=== PATIENT | male | born 1990 | race Caucasian/White ===

== ENCOUNTER → 2016-12-13 | Day surgery (SDC) | payer OTHER ==
[~2016-12-13] MED LIST: BUPIVACAINE 0.5% 30 ML VIAL ONE; CEFAZOLIN 1 GM VIAL ONE; DIPHENHYDRAMINE 50 MG/ML VIAL IV PRN; FENTANYL 100 MCG/2 ML VIAL IV PRN; FENTANYL 250 MCG/5 ML VIAL IV ONE; HYDROmorphone 1 MG INJECTION IV PRN; LABETALOL 20 MG/4 ML SYRINGE IV PRN; LIDOCAINE 4% 5 ML AMPULE NEB ONE; MEPERIDINE 25 MG/ML TUBEX IV PRN; METOCLOPRAMIDE 10 MG/2 ML VIAL IV ONE; MORPHINE 4 MG/ML INJECTION IV ONE; ONDANSETRON HCL 4 MG ODT TAB PO PRN; ONDANSETRON HCL 4 MG/2 ML VIAL IV ONE; ONDANSETRON HCL 4 MG/2 ML VIAL IV PRN; PROMETHAZINE 25 MG/ML VIAL IV PRN; PROPOFOL 200 MG/20 ML VIAL IV ONE; SODIUM CHLORIDE 0.9% 3 ML FLUSH FLUSH PRN; SODIUM CHLORIDE 0.9% 3 ML FLUSH FLUSH SCH; hydrALAZINE 20 MG/ML VIAL IV PRN
[2016-12-13 11:59] VITALS: BMI 52.9
--- NOTE | 2016-12-13 12:41 | EDPRACDOC ---
- General Information Chief Complaint: Male Urogenital Problems Stated Complaint: SWOLLEN LT TESTICLE WITH PAIN Time Seen by Provider: 12/13/16 12:09 Information Source: Patient Mode Of Arrival: Car Home Medications: Home Medications No Home Medications 12/13/16 Allergies/Adverse Reactions: Allergies Allergy/AdvReac Type Severity Reaction Status Date / Time No Known Allergies Allergy Verified 12/13/16 11:59 - History of Present Illness Onset: wednesday HPI: Patient reports left testicular pain started on Wednesday while at work - no known injury, no lifting/twisting. Denies chance of STD. Patient reports pain has continued to worsen. Swelling/redness increased. Denies fever, reports chills and nausea without vomiting. Pain with urination as he states his penis is being "pushed in" d/t the swelling. Denies hx of similar. Symptom Onset: Reports: Sudden, Spontaneous Urinary Output: Normal Pain Severity: Severe Pain Quality: Reports: Aching Pain Improves with: Reports: Nothing Associated Signs & Symptoms: Reports: Dysuria, Nausea ED Past Medical History - History Reviewed Yes Nurses notes reviewed and agree except as marked - Patient Medical History Psychological History: Denies: Depression Surgical History: Reports: Tonsillectomy/Adnoidectomy - Social Medical History Smoking Status: Never smoker ETOH: None Substance Abuse: None Lives In: Home EDM Review of Systems - Review of Systems ROS Negative Except as Marked: Yes All systems reviewed and were negative except as marked Constitutional: Chills Eyes: No Symptoms Reported Ears: No Symptoms Reported Throat: No Symptoms Reported Nose: No Symptoms Reported Mouth: No Symptoms Reported Respiratory: No Symptoms Reported Cardiovascular: No Symptoms Reported Gastrointestinal: Nausea Genitourinary: Testicular Pain - Physical Exam Constitutional: Alert (Awake), No apparent distress Oriented to: Time, Person, Place Last recorded Vital Signs: Last Vital Signs Temp 97.9 F 12/13/16 11:57 Pulse 107 12/13/16 11:57 Resp 22 12/13/16 11:57 BP 178/111 H 12/13/16 11:57 Pulse Ox 97 12/13/16 11:57 Oxygen Pulse Oxygen Saturation 97 O2 Device Oxygen Flow Rate Fraction of Inspired Oxygen ( FIO2) - HEENT Head: Normal ( normocephalic) Eye Exam: Normal (PERRL, EOMI, Sclera white) Nose: No Symptoms Reported (septum midline) Neck: Normal (FROM, trachea at midline) - Respiratory/Cardiovascular Respiratory: Normal - CTA (BBS clear to auscultation without adventitious sounds ) Cardiovascular: Normal (RRR without murmur, gallop or rub) - GI Auscultation: Normal (NABS) Tenderness: Non tender - Musculoskeletal Back: Normal (Non-Tender) Extremities: Normal (Normal tone, Pulses 2+ No cyanosis or edema, FROM) - Integumentary Skin: Normal, Warm, Dry Lymphatics: Normal (no adenopathy) - Neurologic Memory Impaired: Normal Motor Function: Normal (Normal tone, Pulses 2+ No cyanosis or edema, FROM) Mood Description: Normal ED Penile Problem Exam - Genitals Penile Assessment: Other (Inverted) Testicle: Left: Tender, Swelling (Extremely tender, significant induration) - Re-evaluation Re-evaluation 1 Re-evaluation Time: 13:[address] George - Dr. Ly from radiology called - US evidence sufficient for torsion. Re-evaluation 2 Re-evaluation Time: 13:39 Dr. George returned call - will be here in 1hour to do case. - Departure Disposition: Admit IP To This Hospital Condition: Stable Final Diagnosis: Testicular torsion Education/Counseling Given To: Patient, Family Member Education/Counseling Given Regarding: Diagnosis, Treatment, Prognosis, Follow Up Decision to Admit Time: 13:40 Decision to admit date: 12/13/16 Decision to admit: from ED - Physician Consulted Urology Time Called: 13:40 Provider Called: Juan George (Will be in within the hour to do surgery) Consult Reason: Torsion
[2016-12-13 12:50] LABS: RBC/URINE 0-2 (0-2)
[2016-12-13 12:52] LABS: LEUKOCYTES/URINE NEG (NEGATIVE); NITRITE/URINE NEG (NEGATIVE); URINE OCCULT BLOOD TRACE (NEG/TRACE)
[2016-12-13 12:54] LABS: WBC/URINE 0-2 (0-2)
--- NOTE | 2016-12-13 13:43 | DIRPT ---
CLINICAL DATA: Testicular pain. LEFT testicular pain and swelling which started 2 days prior. EXAM: SCROTAL ULTRASOUND DOPPLER ULTRASOUND OF THE TESTICLES TECHNIQUE: Complete ultrasound examination of the testicles, epididymis, and other scrotal structures was performed. Color and spectral Doppler ultrasound were also utilized to evaluate blood flow to the testicles. COMPARISON: None. FINDINGS: Right testicle Measurements: Normal in size and homogeneous in echotexture measuring 4.9 x 2.6 x 2.8 cm.. Normal color Doppler flow. Normal spectral arterial and venous waveforms. Left testicle Measurements: Normal in size at 5.0 x 3.5 x 3.3 cm. Normal echotexture.. There is decreased color Doppler flow in the LEFT testicle compared to the RIGHT. Arterial waveforms are slightly dampened compared to RIGHT but evident. No venous waveforms were identified. Overall decreased vascularity compared to the RIGHT. Right epididymis: Normal in size and appearance. Left epididymis: Hyperemic LEFT epididymis Hydrocele: Small RIGHT hydrocele Varicocele: None visualized. Pulsed Doppler interrogation of both testes demonstrates normal low resistance arterial and venous waveforms bilaterally. IMPRESSION: 1. Asymmetric testicular vascularity with decreased vascularity to the LEFT testicle compared to the RIGHT. Arterial venous waveforms are mildly dampened in the LEFT testicle and venous waveforms were not identified. Findings suggestive intermittent or early LEFT testicular torsion. 2. Normal RIGHT testicle. Findings conveyed Lenin Syed 12/13/2016 at13:30. Electronically Signed By: Vipul Muhammad M.D. On: 12/13/2016 13:40
--- NOTE | 2016-12-13 13:59 | SC.ANESPOS ---
Post-Anesthesia Note LOC: Fully Awake Post-Anesthesia Assessment: Awake, Returned to Baseline, Hemodynamically Stable , Pain Control Adequate Phase I & II Recovery Complete: Yes Apparent Anesthesia Complication: No : N - Vital Signs Blood Pressure: 178/111 Pulse: 107 Resp Rate: 22 O2 Sat: 97 Temp: 97.9 F
[2016-12-13 14:24] LABS: MPV 9.6 fL (7.4-10.4)
[2016-12-13 14:34] LABS: BLOOD UREA NITROGEN 10 MG/DL (9-20); CALCIUM 9.6 MG/DL (8.4-10.2); CALCULATED OSMOLALITY 269 MOs/Kg (270-290); CHLORIDE 102 mEq/L (98-107); GLUCOSE 126 MG/DL (70-99); SODIUM LEVEL 139 mEq/L (137-146); TOTAL PROTEIN 7.6 G/DL (6.3-8.2)
--- NOTE | 2016-12-13 14:51 | HIM.ANES ---
Anesthesia Evaluation & Plan Diagnoses: TESTICULAR PAIN, UNSPECIFIED (12/13/16) Surgeon:: Juan George - Focused Review of Systems Respiratory: Yes: Patient at risk for Sleep apnea (Based on RACHAEL tool) Gastrointestinal: No: Hx Gastroesophageal Reflux Disease Psychological: No Hx Depression Smoking Status: Never smoker Alcohol use: None Surgical History: Yes: T&A - Focused Physical Exam NPO since: yesterday Mallampati: Class III Thyromental Distance: Greater than 3 Neck: Full Range of Motion Dental: Normal - no significant findings, Other (Irregular edges) Cardiovascular/Chest: Normal Respiratory: Decreased breath sounds Any problems with anesthesia, including nausea and vomiting?: No Any relatives with a history of Malignant Hyperthermia?: No Does patient have a history of Malignant Hyperthermia?: No Beta Hussein given (if appropriate): N/A Other: Problem List Problem Status Onset Testicular torsion Acute CBC/BMP/Other 12/13/16 13:55 12/13/16 13:55 Allergies Allergy/AdvReac Type Severity Reaction Status Date / Time No Known Allergies Allergy Verified 12/13/16 11:59 Home Medications Medication Instructions Recorded Last Taken Type No Home Medications 12/13/16 Unknown History Height and Weight Patient's height 6 ft 3 in Patient's weight 424 lb Weight (Calculated Kilograms) 192.323 BMI 52.9 Vital Signs Temperature 99.6 F 12/13/16 14:33 Pulse Rate 101 12/13/16 14:33 Respiratory Rate 22 12/13/16 14:33 Blood Pressure 176/91 12/13/16 14:33 Pulse Oxygen Saturation 98 12/13/16 14:33 - Anesthetic Plan Anesthesia Type: General ASA Class: 3, E -: I have examined this patient and reviewed the medical record. The patient has been assessed prior to anesthesia. Risks and benefits of anesthesia and anesthetic technique options have been discussed and all questions answered. The patient accepts the risk and desires me to proceed with the planned anesthetic.
--- NOTE | 2016-12-13 15:58 | HIMOPRPT ---
FINDING: DATE OF PROCEDURE: 12/13/16 PREOPERATIVE DIAGNOSIS: [ ].TORTION LEFT TESTICLE POSTOPERATIVE DIAGNOSIS: [ ].TORTION LEFT TESTICLE WITH INFARCTION PROCEDURE PERFORMED: [EXPLORATION OF THE LEFT TESTIS AND LEFT ORCHIECTOMY ]. ANESTHESIA: [ GENERAL ]. SURGEON: Juan George MD PROCEDURE IN DETAIL: [ THIS PATIENT WAS TAKEN TO THE OPERATING ROOM WAS GIVEN GENERAL ANESTHESIA-- HE WAS THEN PLACED IN SUPINE POSITION AND WAS PREPPED AND DRAPED IN USUAL STERILE FASHION--A A TRANSVERSE MID SCROTAL INCISION WAS MADE FOR 5 CM ACROSS THE SCROTUM ON THE LEFT SIDE UNTILL THE TUNICA VAGINALIS WAS REACHED--- THEN THE T[place] WAS OPENED AND PATIENT HAD A TORTED TESTIS WHICH WAS BLUISH BLACK---IT WOULD NOT CHANGE IN COLOR EVEN AFTER 15 MINUTES OF WARMING --SO A. LEFT ORCHIECTOMY WAS CARRIED-- SHRUTHI IS THOROUGHLY IRRIGATED HEMOSTASIS AND THEN THE INCISION WAS CLOSED IN 2 LAYERS USING 0O CHROMIC INTERRUPTED SUTURES-- IS STARTED DRESSING FOLLOWED BY SCROTAL SUPPORT WERE APPLIED AND PATIENT WAS SUBSEQUENTLY RETURNED TO THE RECOVERY ROOM IN SATISFACTORY CONDITION THANK YOU
[2016-12-13 16:28] LABS: SEG NEUTROPHIL 88 % (45-76)
[2016-12-13 18:11] VITALS: PULSE 107; TEMP 97.9
[2016-12-13 19:06] VITALS: BP 135/61
== END ==
LOC: ED 11:52 → SDC 14:39
PROVIDERS: ATTEND Urology
PROC: 0VTB0ZZ Resection of Left Testis, Open Approach (ICD-10-PCS; principal; 2016-12-13 14:45)
DX: N44.00 Torsion of testis, unspecified (principal); N50.1 Vascular disorders of male genital organs
CPT/HCPCS: 36415; 54520; 76870; 80053; 81001; 85007; 85027; 93975; 96374; 99283; J0690; J2270; J2405; J2765; J3010; J3490